=== PATIENT | female | born 1965 | race Caucasian/White ===

== ENCOUNTER 2018-05-06 17:58 | Inpatient (IN) | payer MEDICAID, SELFPAY ==
[2018-05-06 17:59] VITALS: BP 163/109; PULSE 113; RESP 18; TEMP 36.2; O2SAT 98; BMI 24.5
[2018-05-06] MEDS: Ondansetron 4 MG/2 ML Vial IV (19:09)
[2018-05-06] MEDS: 0.9% Normal Saline 1,000 ML 1000 ML IV (19:09)
[2018-05-06] MEDS: LORazepam 1 MG Tablet PO (19:09)
[2018-05-06 19:36] LABS: Absolute Lymphocyte Count 1.33 X10^3/ul (0.83-4.51); Absolute Neutrophil Count 3.8 X10^3/uL (2.0-7.7); Basophil# 0.06 X10^3/uL; Eosinophil# 0.02 X10^3/uL; Eosinophils% 0.3 % (0-5); Hematocrit 45.3 % (37-47); Hemoglobin 15.3 g/dl (12.0-15.0); Lymphocyte # 1.33 X10^3/ul (4.0); Lymphocyte % 22.8 % (19-41); Mean Corp Hgb Conc 33.8 g/gl (32-36); Mean Corpuscular Hgb 35.3 pg (27.0-32.0); Mean Corpuscular Volume 104.6 fL (81-99); Mean Platelet Vol. 10.3 fl (6.2-12.0); Monocyte# 0.61 X10^3/uL; Monocyte% 10.5 % (0-10); Neutrophil # 3.81 X10^3/uL (2.7-7.7); Neutrophil % 65.4 % (47-70); Platelet Count 170 K/mm3 (150-450); RBC Distribution Width CV 13.3 % (11.6-14.6); RBC Distribution Width SD 50.8 fl (35.1-43.9); Red Blood Count 4.33 M/mm3 (4.2-5.4); White Blood Count 5.8 K/mm3 (4.4-11.0)
[2018-05-06 19:39] LABS: Anion Gap 16 (5-15); BUN 12 mg/dL (7-18); BUN/Creat Ratio 15.5 RATIO (10-20); Calcium,Total 10.4 mg/dL (8.5-10.1); Chloride 97 mmol/L (98-107); Creatinine, Serum 0.78 mg/dL (0.55-1.02); EST Glomerular Filtration Rate 83 mL/min (>60); Est Glom Filt Rate - Afr Amer 100 mL/min (>60); Estimated Creatinine Clearance 81.11 ml/min; Glucose 83 mg/dL (74-106); Sodium Level 138 mmol/L (136-145)
[2018-05-06 19:41] LABS: POSITIVE COUNT NO; POSITIVE DIFFERENTIAL NO; POSITIVE MORPHOLOGY NO
--- NOTE | 2018-05-06 20:17 | ED.VISSUMM ---
- ER Visit Summary Date of Service: 05/06/18 Chief Complaint: Alcohol withdrawal History of Present Illness: The patient is a 52 F presenting with alcohol withdrawal requesting detox. Patient states she has been trying to stop using alcohol on her own at home. She states she feels very shaky and is unable to do this on her own. Her last drink was at 10 AM. She drinks 2-3 glasses of vodka per day. She has been drinking heavily since 2012 when she quit smoking. She has no history of withdrawal seizures or DTs. Physical Examination: Vitals are stable. Patient is afebrile. HR 113. Alert no acute distress. HEENT exam is unremarkable. Neck is supple. Lungs are clear and equal bilaterally. Heart is regular and tachycardic Abdomen is soft nontender nondistended. Extremities are unremarkable. Skin is warm and dry. No focal neurologic deficit. Remainder of exam is unremarkable. Emergency Department Course and Treatment: CIWA score 15. Patient was given IV fluids, Zofran, Ativan. CBC, chemistries unremarkable. Alcohol 8.0. Urine tox is pending. Discussed with the hospitalist for admission. Disposition: Admission Impression: Alcohol withdrawal This note was generated with [employer] dictation software. It may contain incorrect words, spelling, and punctuation that were not noted in review of the chart prior to signing ED Disposition - Plan for ED Patient: Chief Complaint: Substance Abuse Referrals: Shant Allison [Primary Care Provider] -
[2018-05-06 20:50] VITALS: BP 149/99; PULSE 90; RESP 18; O2SAT 98
[2018-05-06] MEDS: 0.9% Normal Saline 1,000 ML 999 ML IV (20:55)
[2018-05-06 21:06] LABS: Amphetamine Urine VISTA NEGATIVE (<1000 ng/mL); Barbiturate Urine VISTA NEGATIVE (< 200 ng/mL); Benzodiazepine Urine VISTA NEGATIVE (< 200 ng/mL); Cocaine Urine VISTA NEGATIVE (< 300 ng/mL); Ecstacy Urine VISTA NEGATIVE (< 500 ng/mL); Methadone Urine VISTA NEGATIVE (< 300 ng/mL); PCP Urine VISTA NEGATIVE (< 25 ng/mL); THC Urine VISTA NEGATIVE (< 50 ng/mL); Vista UDS pH Range 6
--- NOTE | 2018-05-06 21:11 | PCM.HP.STD ---
History of Present Illness Date of Admission: 05/06/18 Chief Complaint: alcohol withdrawal The patient is a 52 year old F with past medical history of alcohol dependence and anxiety. She was admitted to the ED on 05/06/2018 with complaint of alcohol withdrawal and wanting to go to detox. She tried to detox at home on her own but started feeling very shaky and having tremors and palpitations. She had a last drink around 10 AM this morning. She usually drinks about 2-3 glasses of vodka every evening and has been drinking heavily since 2012. She denied any fever or chills, cough or chest pain, shortness of breath, abdominal pain, diarrhea vomiting. In the ED, CIWA score was 15. She was tachycardic with heart rate of 113. Alcohol level was 18 urine tox was pending at time of admission. She is been admitted to manage for alcohol withdrawal. 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 Denies: Anorexia, Chills, Fever HEENT: Denies: Head Aches, Sinus Congestion, Sinus Drainage Cardiovascular: Reports: Palpitations. Denies: Chest Pain Respiratory: Denies: Cough, Shortness of Breath, Shortness of breath at rest, Sputum production Gastrointestinal: Denies: Abdominal Pain, Nausea, Vomiting Genitourinary: Denies: Dysuria Musculoskeletal: Denies: Joint Pain, Joint Tenderness Skin: Denies: Rash, Wounds Neurological: Denies: Numbness, Tingling, Focal weakness Psychiatric: Reports: Anxiety Hematologic/ Lymphatic: Denies: Easy Bruising, Easy Bleeding VTE Information - Inpt Only VTE Present on Admission: No VTE Pharm Prophylaxis ordered?: Yes - Physical Exam General: Alert, Oriented x3, Cooperative, - - looks anxious HEENT: Atraumatic, PERRLA, EOMI, Normocephalic Oral: Dry Mucosa Neck: Supple, No JVD, Negative Carotid Bruits Lungs: Clear to auscultation, Normal air movement Cardiovascular: Regular Rhythm, Normal S1, Normal S2, No murmurs, Tachycardic Abdomen: Bowel Sounds Present, Soft, Non Tender Extremities: No clubbing, No cyanosis, No edema, Capillary Refill Less than 3 Seconds Skin: No rashes, No breakdown Musculoskeletal: No Tenderness to Palpation of Joints or Extremities Lymphatic: No Cervical, Supraclavicular, or Inguinal Adenopathy Neurological: Cranial nerves II-XII grossly intact, Neuro grossly intact, Motor Exam 5/5 strength throughout Psych/Mental Status: Anxious, Alert and oriented to time, place, person, mood and affect Vital Signs Temp Pulse Resp BP Pulse Ox 97.1 F L 90 18 149/99 H 98 05/06/18 17:59 05/06/18 20:50 05/06/18 20:50 05/06/18 20:50 05/06/18 20:50 Oxygen Delivery Method Room Air Weight: 156 lb 4.924 oz Body Mass Index (BMI) 24.5 Laboratory Tests Past 24 Hrs 05/06/18 05/06/18 05/06/18 19:10 19:10 19:10 WBC 5.8 RBC 4.33 Hgb 15.3 H Hct 45.3 MCV 104.6 H MCH 35.3 H MCHC 33.8 RDW 13.3 RDW Differential 50.8 H Plt Count 170 MPV 10.3 Immature Gran % (Auto) 0.000 Neut % (Auto) 65.4 Lymph % (Auto) 22.8 [place] % (Auto) 10.5 H Eos % (Auto) 0.3 Baso % (Auto) 1.0 Absolute Neuts (auto) 3.8 Absolute Lymphs (auto) 1.33 Total Counted Not Reportable Sodium 138 Potassium 4.0 Chloride 97 L Carbon Dioxide 25.0 Anion Gap 16 H BUN 12 Creatinine 0.78 Estim Creat Clear Calc 81.11 Est GFR (MDRD) Af Amer 100 Est GFR (MDRD) Non-Af 83 BUN/Creatinine Ratio 15.5 Glucose 83 Calcium 10.4 H Urine Opiates Screen Urine Methadone Screen Ur Barbiturates Screen Ur Phencyclidine Scrn Ur Amphetamines Screen U Methamphetamin-MDMA U Benzodiazepines Scrn Urine Cocaine Screen U Cannabinoids Screen Ur Drug Screen Comment Ethyl Alcohol 8.0 05/06/18 20:45 WBC RBC Hgb Hct MCV MCH MCHC RDW RDW Differential Plt Count MPV Immature Gran % (Auto) Neut % (Auto) Lymph % (Auto) [place] % (Auto) Eos % (Auto) Baso % (Auto) Absolute Neuts (auto) Absolute Lymphs (auto) Total Counted Sodium Potassium Chloride Carbon Dioxide Anion Gap BUN Creatinine Estim Creat Clear Calc Est GFR (MDRD) Af Amer Est GFR (MDRD) Non-Af BUN/Creatinine Ratio Glucose Calcium Urine Opiates Screen NEGATIVE Urine Methadone Screen NEGATIVE Ur Barbiturates Screen NEGATIVE Ur Phencyclidine Scrn NEGATIVE Ur Amphetamines Screen NEGATIVE U Methamphetamin-MDMA NEGATIVE U Benzodiazepines Scrn NEGATIVE Urine Cocaine Screen NEGATIVE U Cannabinoids Screen NEGATIVE Ur Drug Screen Comment Ethyl Alcohol Assessment/Plan 52-year-old female presenting for alcohol withdrawal. 1. Alcohol withdrawal CIWA score on admission was 15 drinks 2-3 glasses of vodka dailyu admit to Med surg with telemetry Check magnesium level. Monitor CIWA score. Start alcohol withdrawal protocol with Ativan per [facility] protocol. Case management consult for discharge planning. PO multivites, folic acid and thiamine daily. 2. Anxiety: not on medication. To be referred to psychiatrist upon discharge. 3. Elevated blood pressure: Blood pressure was in the 160s on admission. Likely due to alcohol withdrawal. Will monitor and start medications as needed. DVT prophylaxis: Heparin Code Visit Inpatient E&M: 21350 Init Hosp L3
[2018-05-06 21:12] VITALS: BMI 23.8
--- NOTE | 2018-05-06 21:16 | HP.PCM_ITS ---
History of Present Illness Date of Admission: 05/06/18 Chief Complaint: alcohol withdrawal The patient is a 52 year old F with past medical history of alcohol dependence and anxiety. She was admitted to the ED on 05/06/2018 with complaint of alcohol withdrawal and wanting to go to detox. She tried to detox at home on her own but started feeling very shaky and having tremors and palpitations. She had a last drink around 10 AM this morning. She usually drinks about 2-3 glasses of vodka every evening and has been drinking heavily since 2012. She denied any fever or chills, cough or chest pain, shortness of breath, abdominal pain, diarrhea vomiting. In the ED, CIWA score was 15. She was tachycardic with heart rate of 113. Alcohol level was 18 urine tox was pending at time of admission. She is been admitted to manage for alcohol withdrawal. 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 Denies: Anorexia, Chills, Fever HEENT: Denies: Head Aches, Sinus Congestion, Sinus Drainage Cardiovascular: Reports: Palpitations. Denies: Chest Pain Respiratory: Denies: Cough, Shortness of Breath, Shortness of breath at rest, Sputum production Gastrointestinal: Denies: Abdominal Pain, Nausea, Vomiting Genitourinary: Denies: Dysuria Musculoskeletal: Denies: Joint Pain, Joint Tenderness Skin: Denies: Rash, Wounds Neurological: Denies: Numbness, Tingling, Focal weakness Psychiatric: Reports: Anxiety Hematologic/ Lymphatic: Denies: Easy Bruising, Easy Bleeding VTE Information - Inpt Only VTE Present on Admission: No VTE Pharm Prophylaxis ordered?: Yes - Physical Exam General: Alert, Oriented x3, Cooperative, - - looks anxious HEENT: Atraumatic, PERRLA, EOMI, Normocephalic Oral: Dry Mucosa Neck: Supple, No JVD, Negative Carotid Bruits Lungs: Clear to auscultation, Normal air movement Cardiovascular: Regular Rhythm, Normal S1, Normal S2, No murmurs, Tachycardic Abdomen: Bowel Sounds Present, Soft, Non Tender Extremities: No clubbing, No cyanosis, No edema, Capillary Refill Less than 3 Seconds Skin: No rashes, No breakdown Musculoskeletal: No Tenderness to Palpation of Joints or Extremities Lymphatic: No Cervical, Supraclavicular, or Inguinal Adenopathy Neurological: Cranial nerves II-XII grossly intact, Neuro grossly intact, Motor Exam 5/5 strength throughout Psych/Mental Status: Anxious, Alert and oriented to time, place, person, mood and affect Vital Signs Temp Pulse Resp BP Pulse Ox 97.1 F L 90 18 149/99 H 98 05/06/18 17:59 05/06/18 20:50 05/06/18 20:50 05/06/18 20:50 05/06/18 20:50 Oxygen Delivery Method Room Air Weight: 156 lb 4.924 oz Body Mass Index (BMI) 24.5 Laboratory Tests Past 24 Hrs 05/06/18 05/06/18 05/06/18 19:10 19:10 19:10 WBC 5.8 RBC 4.33 Hgb 15.3 H Hct 45.3 MCV 104.6 H MCH 35.3 H MCHC 33.8 RDW 13.3 RDW Differential 50.8 H Plt Count 170 MPV 10.3 Immature Gran % (Auto) 0.000 Neut % (Auto) 65.4 Lymph % (Auto) 22.8 [place] % (Auto) 10.5 H Eos % (Auto) 0.3 Baso % (Auto) 1.0 Absolute Neuts (auto) 3.8 Absolute Lymphs (auto) 1.33 Total Counted Not Reportable Sodium 138 Potassium 4.0 Chloride 97 L Carbon Dioxide 25.0 Anion Gap 16 H BUN 12 Creatinine 0.78 Estim Creat Clear Calc 81.11 Est GFR (MDRD) Af Amer 100 Est GFR (MDRD) Non-Af 83 BUN/Creatinine Ratio 15.5 Glucose 83 Calcium 10.4 H Urine Opiates Screen Urine Methadone Screen Ur Barbiturates Screen Ur Phencyclidine Scrn Ur Amphetamines Screen U Methamphetamin-MDMA U Benzodiazepines Scrn Urine Cocaine Screen U Cannabinoids Screen Ur Drug Screen Comment Ethyl Alcohol 8.0 05/06/18 20:45 WBC RBC Hgb Hct MCV MCH MCHC RDW RDW Differential Plt Count MPV Immature Gran % (Auto) Neut % (Auto) Lymph % (Auto) [place] % (Auto) Eos % (Auto) Baso % (Auto) Absolute Neuts (auto) Absolute Lymphs (auto) Total Counted Sodium Potassium Chloride Carbon Dioxide Anion Gap BUN Creatinine Estim Creat Clear Calc Est GFR (MDRD) Af Amer Est GFR (MDRD) Non-Af BUN/Creatinine Ratio Glucose Calcium Urine Opiates Screen NEGATIVE Urine Methadone Screen NEGATIVE Ur Barbiturates Screen NEGATIVE Ur Phencyclidine Scrn NEGATIVE Ur Amphetamines Screen NEGATIVE U Methamphetamin-MDMA NEGATIVE U Benzodiazepines Scrn NEGATIVE Urine Cocaine Screen NEGATIVE U Cannabinoids Screen NEGATIVE Ur Drug Screen Comment Ethyl Alcohol Assessment/Plan 52-year-old female presenting for alcohol withdrawal. 1. Alcohol withdrawal * CIWA score on admission was 15 * drinks 2-3 glasses of vodka dailyu * admit to Med surg with telemetry * Check magnesium level. * Monitor CIWA score. Start alcohol withdrawal protocol with Ativan per [facility] protocol. * Case management consult for discharge planning. * PO multivites, folic acid and thiamine daily. * 2. Anxiety: not on medication. To be referred to psychiatrist upon discharge. 3. Elevated blood pressure: Blood pressure was in the 160s on admission. Likely due to alcohol withdrawal. Will monitor and start medications as needed. DVT prophylaxis: Heparin Code Visit Inpatient E&M: 52418 Init Hosp L3
[2018-05-06 21:38] VITALS: BP 134/87; PULSE 105; RESP 20; TEMP 37; O2SAT 98
[2018-05-06 21:41] VITALS: BMI 23.9
[2018-05-06 22:00] VITALS: PULSE 111
[2018-05-06] MEDS: 0.9% Normal Saline 1,000 ML 125 ML IV (22:22)
[2018-05-06 22:33] LABS: AST(SGOT) 136 U/L (15-37); Alanine Aminotransfer ALT/SGPT 180 U/L (13-56); Alkaline Phosphatase 102 U/L (45-117); Bilirubin, Direct 0.37 mg/dL (0.00-0.30); Globulin 4.1 g/dL (2.2-4.2); Magnesium 2.1 mg/dL (1.6-2.6); Protein, Total 9.1 g/dL (6.4-8.2)
[2018-05-06] MEDS: Heparin Injection (Vial) 5,000 UNIT/ML VIAL 5000 UNIT SC (22:37)
[2018-05-06] MEDS: Famotidine 20 MG Tablet PO (22:37)
[2018-05-06] MEDS: LORazepam 1 MG Tablet 2 MG PO (22:38)
[2018-05-07] VITALS (14 sets, daily range): BP systolic 128–143; BP diastolic 84–98; PULSE 69–88; RESP 16; TEMP 36.4–37; O2SAT 96–99
[2018-05-07] MEDS: LORazepam 1 MG Tablet 2 MG PO ×6 (05:35→22:10)
[2018-05-07] MEDS: 0.9% Normal Saline 1,000 ML 125 ML IV (05:35)
[2018-05-07] MEDS: Heparin Injection (Vial) 5,000 UNIT/ML VIAL 5000 UNIT SC ×3 (05:35→21:48)
[2018-05-07 05:53] LABS: Absolute Lymphocyte Count 1.81 X10^3/ul (0.83-4.51); Basophil# 0.07 X10^3/uL; Basophil% 1.2 % (0-1); Eosinophil# 0.08 X10^3/uL; Eosinophils% 1.4 % (0-5); Hematocrit 40.8 % (37-47); Hemoglobin 13.5 g/dl (12.0-15.0); Lymphocyte # 1.81 X10^3/ul (4.0); Lymphocyte % 31.3 % (19-41); Mean Corp Hgb Conc 33.1 g/gl (32-36); Mean Corpuscular Hgb 35.7 pg (27.0-32.0); Mean Corpuscular Volume 107.9 fL (81-99); Mean Platelet Vol. 10.2 fl (6.2-12.0); Monocyte% 13.8 % (0-10); Neutrophil # 3.02 X10^3/uL (2.7-7.7); Neutrophil % 52.1 % (47-70); Platelet Count 139 K/mm3 (150-450); Red Blood Count 3.78 M/mm3 (4.2-5.4); White Blood Count 5.8 K/mm3 (4.4-11.0)
[2018-05-07 06:17] LABS: Anion Gap 8 (5-15); BUN 16 mg/dL (7-18); BUN/Creat Ratio 19.1 RATIO (10-20); Calcium,Total 8.7 mg/dL (8.5-10.1); Chloride 107 mmol/L (98-107); Creatinine, Serum 0.84 mg/dL (0.55-1.02); EST Glomerular Filtration Rate 75 mL/min (>60); Est Glom Filt Rate - Afr Amer 91 mL/min (>60); Estimated Creatinine Clearance 75.32 ml/min; Glucose 87 mg/dL (74-106); Potassium 4.4 mmol/L (3.5-5.1); Sodium Level 144 mmol/L (136-145)
[2018-05-07 06:21] LABS: POSITIVE COUNT NO; POSITIVE DIFFERENTIAL NO; POSITIVE MORPHOLOGY NO
[2018-05-07] MEDS: Multivitamins,Ther W-Minerals Tablet 1 TABLET PO (08:05)
[2018-05-07] MEDS: Famotidine 20 MG Tablet PO ×2 (08:05→21:48)
[2018-05-07] MEDS: Folic Acid 1 MG Tablet PO (08:05)
[2018-05-07] MEDS: Thiamine Hydrochloride 100 MG Tablet PO ×2 (08:05→17:23)
--- NOTE | 2018-05-07 08:08 | PCM.PROGNOTE ---
Subjective: Patient is a 52-year-old female with no significant past medical history other than alcoholism who tried to detox herself at home. She started to experience tremors and palpitations and presented to the emergency department at [facility] on 05/06/2018 requesting inpatient admission for medical stabilization for acute alcohol withdrawal. She stated she drinks 2-3 glasses of vodka every evening and has been drinking heavily since 2012. See was score in the emergency department was 15. Heart rate was 113. She was admitted to the hospital and the [facility] protocol for acute alcohol withdrawal was initiated. She was started on an Ativan taper. Folic acid and thiamine supplementation were ordered. CBC this morning shows thrombocytopenia with platelet count of 139,000. White blood cell count and hemoglobin are within normal limits. LFTs at admission showed an elevated bilirubin at 1.4, AST of 136 and ALT of 180 with a normal alkaline phosphatase. Urine drug screen was negative and the ethyl alcohol level was 8.0. She has tried in the past to stop drinking on her own and has not been successful. She has never been in a rehab program or AA. She is seeing a counselor at [facility] for anxiety. 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 She tells me she never drinks at work, she only drinks at home. She drinks usually 6 oz of 40% Vodka after going home and she does this to help her sleep. She has been in the same relationship of 23 years and he significant other is not a drinker. She denies any drug use. Does not take Benzo's, has never tried Buspar. No N/V/D/Abd pain. Having some mild tremors. No hallucinations. Mild HTN today Objective: PHYSICAL EXAM: GENERAL: alert, oriented X 3, Cooperative, tremulous and looks as though she does not feel well, was able to eat most of her lunch ORAL: moist mucosa, no mucosal lesions NECK: No JVD, supple, trachea midline LUNGS: CTA, symmetric chest expansion HEART: RRR, Normal S1 and S2, no rub, no gallop ABDOMEN: soft, NT, ND, BS present, no guarding with palpation EXTREMITIES: no edema, no cyanosis, no calf tenderness SKIN: No rashes, no breakdown NEUROLOGIC: no focal neurologic deficits, mild tremors. No asterixis PSYCH: appropriate, normal affect, pleasant - Physical Exam Vital Signs Temp Pulse Resp BP Pulse Ox 98.6 F 88 16 128/84 H 97 05/07/18 08:00 05/07/18 08:00 05/07/18 08:00 05/07/18 08:00 05/07/18 08:00 Oxygen Delivery Method Room Air Weight: 152 lb 8.958 oz Body Mass Index (BMI) 23.8 Intake and Output for Last 24 Hours 05/05/18 05/06/18 05/07/18 23:59 23:59 23:59 Intake Total 1890 / 1890 Output Total 1100 / 1100 Balance 790 / 790 Laboratory Tests Past 24 Hrs 05/06/18 05/06/18 05/06/18 19:10 19:10 19:10 WBC 5.8 RBC 4.33 Hgb 15.3 H Hct 45.3 MCV 104.6 H MCH 35.3 H MCHC 33.8 RDW 13.3 RDW Differential 50.8 H Plt Count 170 MPV 10.3 Immature Gran % (Auto) 0.000 Neut % (Auto) 65.4 Lymph % (Auto) 22.8 [place] % (Auto) 10.5 H Eos % (Auto) 0.3 Baso % (Auto) 1.0 Absolute Neuts (auto) 3.8 Absolute Lymphs (auto) 1.33 Total Counted Not Reportable Sodium 138 Potassium 4.0 Chloride 97 L Carbon Dioxide 25.0 Anion Gap 16 H BUN 12 Creatinine 0.78 Estim Creat Clear Calc 81.11 Est GFR (MDRD) Af Amer 100 Est GFR (MDRD) Non-Af 83 BUN/Creatinine Ratio 15.5 Glucose 83 Calcium 10.4 H Magnesium Total Bilirubin Direct Bilirubin AST ALT Alkaline Phosphatase Total Protein Albumin Globulin Urine Opiates Screen Urine Methadone Screen Ur Barbiturates Screen Ur Phencyclidine Scrn Ur Amphetamines Screen U Methamphetamin-MDMA U Benzodiazepines Scrn Urine Cocaine Screen U Cannabinoids Screen Ur Drug Screen Comment Ethyl Alcohol 8.0 05/06/18 05/06/18 05/07/18 19:10 20:45 05:27 WBC 5.8 RBC 3.78 L Hgb 13.5 Hct 40.8 MCV 107.9 H MCH 35.7 H MCHC 33.1 RDW 13.0 RDW Differential 51.0 H Plt Count 139 L MPV 10.2 Immature Gran % (Auto) 0.200 Neut % (Auto) 52.1 Lymph % (Auto) 31.3 [place] % (Auto) 13.8 H Eos % (Auto) 1.4 Baso % (Auto) 1.2 H Absolute Neuts (auto) 3.0 Absolute Lymphs (auto) 1.81 Total Counted Not Reportable Sodium Potassium Chloride Carbon Dioxide Anion Gap BUN Creatinine Estim Creat Clear Calc Est GFR (MDRD) Af Amer Est GFR (MDRD) Non-Af BUN/Creatinine Ratio Glucose Calcium Magnesium 2.1 Total Bilirubin 1.40 H Direct Bilirubin 0.37 H AST 136 H ALT 180 H Alkaline Phosphatase 102 Total Protein 9.1 H Albumin 5.0 Globulin 4.1 Urine Opiates Screen NEGATIVE Urine Methadone Screen NEGATIVE Ur Barbiturates Screen NEGATIVE Ur Phencyclidine Scrn NEGATIVE Ur Amphetamines Screen NEGATIVE U Methamphetamin-MDMA NEGATIVE U Benzodiazepines Scrn NEGATIVE Urine Cocaine Screen NEGATIVE U Cannabinoids Screen NEGATIVE Ur Drug Screen Comment Ethyl Alcohol 05/07/18 05:27 WBC RBC Hgb Hct MCV MCH MCHC RDW RDW Differential Plt Count MPV Immature Gran % (Auto) Neut % (Auto) Lymph % (Auto) [place] % (Auto) Eos % (Auto) Baso % (Auto) Absolute Neuts (auto) Absolute Lymphs (auto) Total Counted Sodium 144 Potassium 4.4 Chloride 107 Carbon Dioxide 29.0 Anion Gap 8 BUN 16 Creatinine 0.84 Estim Creat Clear Calc 75.32 Est GFR (MDRD) Af Amer 91 Est GFR (MDRD) Non-Af 75 BUN/Creatinine Ratio 19.1 Glucose 87 Calcium 8.7 Magnesium Total Bilirubin Direct Bilirubin AST ALT Alkaline Phosphatase Total Protein Albumin Globulin Urine Opiates Screen Urine Methadone Screen Ur Barbiturates Screen Ur Phencyclidine Scrn Ur Amphetamines Screen U Methamphetamin-MDMA U Benzodiazepines Scrn Urine Cocaine Screen U Cannabinoids Screen Ur Drug Screen Comment Ethyl Alcohol Medical Necessity - Tobacco Use Smoking Status: Former smoker Assessment/Plan Impressions 1. acute ETOH withdrawal 2. ETOH dependence 3. Chronic anxiety - she is currently seeing a counselor at [facility] 4. chronic insomnia Continue lorazepam taper Start trazodone 100 mg p.o. nightly Consider BuSpar in the future for anxiety control Plans on outpatient alcohol rehab Will continue counseling at [facility] seed Check a TSH Code Visit Inpatient E&M: 94797 Subs Hosp L2
--- NOTE | 2018-05-07 08:11 | PN_ITS ---
Subjective: Patient is a 52-year-old female with no significant past medical history other than alcoholism who tried to detox herself at home. She started to experience tremors and palpitations and presented to the emergency department at [facility] on 05/06/2018 requesting inpatient admission for medical stabilization for acute alcohol withdrawal. She stated she drinks 2-3 glasses of vodka every evening and has been drinking heavily since 2012. See was score in the emergency department was 15. Heart rate was 113. She was admitted to the hospital and the [facility] protocol for acute alcohol withdrawal was initiated. She was started on an Ativan taper. Folic acid and thiamine supplementation were ordered. CBC this morning shows thrombocytopenia with platelet count of 139,000. White blood cell count and hemoglobin are within normal limits. LFTs at admission showed an elevated bilirubin at 1.4, AST of 136 and ALT of 180 with a normal alkaline phosphatase. Urine drug screen was negative and the ethyl alcohol level was 8.0. She has tried in the past to stop drinking on her own and has not been successful. She has never been in a rehab program or AA. She is seeing a counselor at [facility] for anxiety. 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 She tells me she never drinks at work, she only drinks at home. She drinks usually 6 oz of 40% Vodka after going home and she does this to help her sleep. She has been in the same relationship of 23 years and he significant other is not a drinker. She denies any drug use. Does not take Benzo's, has never tried Buspar. No N/V/D/Abd pain. Having some mild tremors. No hallucinations. Mild HTN today Objective: PHYSICAL EXAM: GENERAL: alert, oriented X 3, Cooperative, tremulous and looks as though she does not feel well, was able to eat most of her lunch ORAL: moist mucosa, no mucosal lesions NECK: No JVD, supple, trachea midline LUNGS: CTA, symmetric chest expansion HEART: RRR, Normal S1 and S2, no rub, no gallop ABDOMEN: soft, NT, ND, BS present, no guarding with palpation EXTREMITIES: no edema, no cyanosis, no calf tenderness SKIN: No rashes, no breakdown NEUROLOGIC: no focal neurologic deficits, mild tremors. No asterixis PSYCH: appropriate, normal affect, pleasant - Physical Exam Vital Signs Temp Pulse Resp BP Pulse Ox 98.6 F 88 16 128/84 H 97 05/07/18 08:00 05/07/18 08:00 05/07/18 08:00 05/07/18 08:00 05/07/18 08:00 Oxygen Delivery Method Room Air Weight: 152 lb 8.958 oz Body Mass Index (BMI) 23.8 Intake and Output for Last 24 Hours 05/05/18 05/06/18 05/07/18 23:59 23:59 23:59 Intake Total 1890 / 1890 Output Total 1100 / 1100 Balance 790 / 790 Laboratory Tests Past 24 Hrs 05/06/18 05/06/18 05/06/18 19:10 19:10 19:10 WBC 5.8 RBC 4.33 Hgb 15.3 H Hct 45.3 MCV 104.6 H MCH 35.3 H MCHC 33.8 RDW 13.3 RDW Differential 50.8 H Plt Count 170 MPV 10.3 Immature Gran % (Auto) 0.000 Neut % (Auto) 65.4 Lymph % (Auto) 22.8 Bledsoe % (Auto) 10.5 H Eos % (Auto) 0.3 Baso % (Auto) 1.0 Absolute Neuts (auto) 3.8 Absolute Lymphs (auto) 1.33 Total Counted Not Reportable Sodium 138 Potassium 4.0 Chloride 97 L Carbon Dioxide 25.0 Anion Gap 16 H BUN 12 Creatinine 0.78 Estim Creat Clear Calc 81.11 Est GFR (MDRD) Af Amer 100 Est GFR (MDRD) Non-Af 83 BUN/Creatinine Ratio 15.5 Glucose 83 Calcium 10.4 H Magnesium Total Bilirubin Direct Bilirubin AST ALT Alkaline Phosphatase Total Protein Albumin Globulin Urine Opiates Screen Urine Methadone Screen Ur Barbiturates Screen Ur Phencyclidine Scrn Ur Amphetamines Screen U Methamphetamin-MDMA U Benzodiazepines Scrn Urine Cocaine Screen U Cannabinoids Screen Ur Drug Screen Comment Ethyl Alcohol 8.0 05/06/18 05/06/18 05/07/18 19:10 20:45 05:27 WBC 5.8 RBC 3.78 L Hgb 13.5 Hct 40.8 MCV 107.9 H MCH 35.7 H MCHC 33.1 RDW 13.0 RDW Differential 51.0 H Plt Count 139 L MPV 10.2 Immature Gran % (Auto) 0.200 Neut % (Auto) 52.1 Lymph % (Auto) 31.3 Bledsoe % (Auto) 13.8 H Eos % (Auto) 1.4 Baso % (Auto) 1.2 H Absolute Neuts (auto) 3.0 Absolute Lymphs (auto) 1.81 Total Counted Not Reportable Sodium Potassium Chloride Carbon Dioxide Anion Gap BUN Creatinine Estim Creat Clear Calc Est GFR (MDRD) Af Amer Est GFR (MDRD) Non-Af BUN/Creatinine Ratio Glucose Calcium Magnesium 2.1 Total Bilirubin 1.40 H Direct Bilirubin 0.37 H AST 136 H ALT 180 H Alkaline Phosphatase 102 Total Protein 9.1 H Albumin 5.0 Globulin 4.1 Urine Opiates Screen NEGATIVE Urine Methadone Screen NEGATIVE Ur Barbiturates Screen NEGATIVE Ur Phencyclidine Scrn NEGATIVE Ur Amphetamines Screen NEGATIVE U Methamphetamin-MDMA NEGATIVE U Benzodiazepines Scrn NEGATIVE Urine Cocaine Screen NEGATIVE U Cannabinoids Screen NEGATIVE Ur Drug Screen Comment Ethyl Alcohol 05/07/18 05:27 WBC RBC Hgb Hct MCV MCH MCHC RDW RDW Differential Plt Count MPV Immature Gran % (Auto) Neut % (Auto) Lymph % (Auto) Bledsoe % (Auto) Eos % (Auto) Baso % (Auto) Absolute Neuts (auto) Absolute Lymphs (auto) Total Counted Sodium 144 Potassium 4.4 Chloride 107 Carbon Dioxide 29.0 Anion Gap 8 BUN 16 Creatinine 0.84 Estim Creat Clear Calc 75.32 Est GFR (MDRD) Af Amer 91 Est GFR (MDRD) Non-Af 75 BUN/Creatinine Ratio 19.1 Glucose 87 Calcium 8.7 Magnesium Total Bilirubin Direct Bilirubin AST ALT Alkaline Phosphatase Total Protein Albumin Globulin Urine Opiates Screen Urine Methadone Screen Ur Barbiturates Screen Ur Phencyclidine Scrn Ur Amphetamines Screen U Methamphetamin-MDMA U Benzodiazepines Scrn Urine Cocaine Screen U Cannabinoids Screen Ur Drug Screen Comment Ethyl Alcohol Medical Necessity - Tobacco Use Smoking Status: Former smoker Assessment/Plan Impressions 1. acute ETOH withdrawal 2. ETOH dependence 3. Chronic anxiety - she is currently seeing a counselor at [facility] 4. chronic insomnia Continue lorazepam taper Start trazodone 100 mg p.o. nightly Consider BuSpar in the future for anxiety control Plans on outpatient alcohol rehab Will continue counseling at [facility] Check a TSH Code Visit Inpatient E&M: 29200 Subs Hosp L2
[2018-05-07 13:40] LABS: Thyroid Stim Hormone (TSH) 3.52 uIU/mL (0.358-3.74)
[2018-05-08 05:41] VITALS: BP 121/80; PULSE 71; RESP 18; TEMP 36.7; O2SAT 96
[2018-05-08] MEDS: Heparin Injection (Vial) 5,000 UNIT/ML VIAL 5000 UNIT SC ×3 (05:44→22:57)
[2018-05-08 07:06] VITALS: PULSE 79
--- NOTE | 2018-05-08 08:18 | PN_ITS ---
Subjective: All events of the past 24 hours of been reviewed. She had some mild hypertension yesterday afternoon but her current blood pressure is 121/80 and her heart rate is in the 70s and low 80s. Oral intake on 05/07/2018 was 1050 cc. Tells me that she slept better last night She wanted to know all the medications she is on and I reviewed the med list w ith her and explained why we are using the medications we chos No nausea today. Wants to take a shower Objective: PHYSICAL EXAM: GENERAL: alert, oriented X 3, Cooperative, less tremulous, looks better today and is more interactive ORAL: moist mucosa, no mucosal lesions NECK: No JVD, supple, trachea midline LUNGS: CTA, symmetric chest expansion HEART: RRR, Normal S1 and S2, no rub, no gallop ABDOMEN: soft, NT, ND, BS present, no guarding with palpation EXTREMITIES: no edema, no cyanosis, no calf tenderness SKIN: No rashes, no breakdown NEUROLOGIC: no focal neurologic deficits, mild tremors. No asterixis PSYCH: appropriate, normal affect, pleasant - Physical Exam Vital Signs Temp Pulse Resp BP Pulse Ox 98.1 F 79 18 121/80 H 96 05/08/18 05:41 05/08/18 07:06 05/08/18 05:41 05/08/18 05:41 05/08/18 05:41 Oxygen Delivery Method Room Air Weight: 152 lb 8.958 oz Body Mass Index (BMI) 23.8 Intake and Output for Last 24 Hours 05/06/18 05/07/18 05/08/18 23:59 23:59 23:59 Intake Total 3297 / 3297 700 / 700 Output Total 1100 / 1100 Balance 2197 / 2197 700 / 700 Laboratory Tests Past 24 Hrs 05/07/18 05:27 TSH 3.52 Medical Necessity - Tobacco Use Smoking Status: Former smoker Assessment/Plan Impressions 1. acute ETOH withdrawal 2. ETOH dependence 3. Chronic anxiety - she is currently seeing a counselor at [facility] 4. chronic insomnia Continue lorazepam taper Continue trazodone 100 mg p.o. nightly - will give a prescription at [place] Consider BuSpar in the future for anxiety control if getting a good night's sleep does not improve her anxiety Plans on outpatient alcohol rehab Will continue counseling at [facility] Check a TSH - it is normal
[2018-05-08] MEDS: Ondansetron ODT 4 MG Tablet PO (09:52)
[2018-05-08] MEDS: Folic Acid 1 MG Tablet PO (09:53)
[2018-05-08] MEDS: Multivitamins,Ther W-Minerals Tablet 1 TABLET PO (09:54)
[2018-05-08] MEDS: Famotidine 20 MG Tablet PO ×2 (09:54→22:58)
[2018-05-08] MEDS: Thiamine Hydrochloride 100 MG Tablet PO ×2 (09:54→18:45)
[2018-05-08 09:56] VITALS: BP 133/89; PULSE 80; RESP 16; TEMP 36.3; O2SAT 96
[2018-05-08] MEDS: LORazepam 1 MG Tablet 2 MG PO ×3 (10:00→22:56)
--- NOTE | 2018-05-08 10:23 | CASEMGMT ---
Social Work SW spoke with pt in room. Pt stating that she had a court appointment this morning at [address] [facility]. Pt states that her document review attorney is aware that she is currently hospitalized and pt is requesting court be notified of pt current admission to hospital. Letter faxed to [facility] informing of pt admission to [facility] from 05/06/18 to present. Pt given copy of faxed letter. No other SW concerns at this time. ALEX Kirby
[2018-05-08 16:00] VITALS: BP 130/88; PULSE 82; RESP 18; TEMP 36.9; O2SAT 97
[2018-05-08 23:02] VITALS: BP 123/93; PULSE 83; RESP 16; TEMP 36.6; O2SAT 96
[2018-05-09] MEDS: Heparin Injection (Vial) 5,000 UNIT/ML VIAL 5000 UNIT SC (05:33)
[2018-05-09 05:36] VITALS: BP 140/93; PULSE 69; RESP 16; TEMP 36.8; O2SAT 97
[2018-05-09 08:00] VITALS: BP 130/83; PULSE 77; RESP 18; TEMP 36.8; O2SAT 98
[2018-05-09] MEDS: Thiamine Hydrochloride 100 MG Tablet PO (08:13)
[2018-05-09] MEDS: Folic Acid 1 MG Tablet PO (08:13)
[2018-05-09] MEDS: Famotidine 20 MG Tablet PO (08:13)
[2018-05-09] MEDS: Multivitamins,Ther W-Minerals Tablet 1 TABLET PO (08:13)
[2018-05-09] MEDS: LORazepam 1 MG Tablet 2 MG PO (08:30)
--- NOTE | 2018-05-09 08:47 | DCINST_ITS ---
You will use the following diet at home:: No restrictions Your food should be the consistency of: Regular Discharge Activity: May Not Drive - while under the influence of alcohol or any other substance. Allergies/Adverse Reactions: Allergies No Known Allergies Allergy (Verified 05/06/18 17:59) Medications to take at Discharge DiphenhydrAMINE [Benadryl] 25 mg PO QHS PRN PRN 05/06/18 traZODone [Desyrel] 100 mg PO QHS #30 tablet 05/08/18 Multivitamins,Ther W-Minerals [Multivitamin With Minerals] 1 tablet PO DAILYCM tablet 05/09/18 The following prescriptions were given: traZODone [Desyrel] 100 mg PO QHS #30 tablet Primary Care Physician: Shant Allison [Primary Care Provider] - Within 2 Weeks Test Results: Test results from this visit will be discussed in further detail at your follow- up appointment, if applicable. Please Follow Up With: [facility] When: as soon as possible. Proposed Discharge Date: 05/09/18
--- NOTE | 2018-05-09 08:47 | PCM.DC.SUM ---
Discharge Date and Diagnosis - Problem List Patient Problems: Active and Suspected Problems Alcohol withdrawal (Acute) Date of Admission: 05/06/18 Date of Discharge: 05/09/18 - Primary Discharge Diagnosis Active and Suspected Problems Alcohol withdrawal (Acute) Hospital Course and Treatment Operations: None Procedures: None Summary of Care Provided: The patient is a 52 year old F presents with acute alcohol withdrawal. Patient presented to the hospital to see her daughter who is Having a psychological issue where she went to a [employer] [place] and called 911. Daughter demanded that the patient drive to the hospital to see her. The patient, knowing she was intoxicated, drove to the hospital and when she arrived was given a breathalyzer by police and then had a high alcohol level. Patient was told that she was not being arrested but told that she was having operating a vehicle while intoxicated even though the patient was not actively driving at that time. Patient made decision that it was time for her to quit alcohol. Patient never quit before. Patient states that she drinks because of her daughter who has psychological issues that have been diagnosed as PTSD. This is per the patient's description, the above. Patient was started on thiamine and folate and was on Ativan as needed. Patient overall feels better. Patient was ambulated initially was unsteady but did not improve. Patient unable to complete a heel to toe the patient states that is baseline for her given her history of M?ni?re's disease. 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 And that the discrete circumstance that she described extremely not what I would consider to be typical but I am not sure what the standard is. Advised her to use discussion in regards to who she relates information about this to. Though I did strongly condemn her driving drunk even though she stated that she only lived short distance away. I told her that is no excuse for that and that she could easily call a taxi cab or use [employer] for transportation. [] Patient Problems: Active and Suspected Problems Alcohol withdrawal (Acute) - Physical Exam General: Alert, Cooperative, No apparent distress HEENT: Atraumatic, Normocephalic, - - left lateral nystagmus. Neck: No Nodes, Thyroid Normal Size and Texture Lungs: Clear to auscultation, Normal air movement, No rhonchi, No wheeze Cardiovascular: Regular rate, Regular Rhythm, Normal S1, Normal S2 Abdomen: Bowel Sounds Present, Soft, Non Tender, Non-Distended, No Hepato-splenomegaly Extremities: No edema, No Calf Tenderness Skin: No rashes, No breakdown Psych/Mental Status: Normal Affect, Appropriate Vital Signs Temp Pulse Resp BP Pulse Ox 36.8 C 77 18 130/83 H 98 05/09/18 08:00 05/09/18 08:00 05/09/18 08:00 05/09/18 08:00 05/09/18 08:00 Oxygen Delivery Method Room Air Weight: 69.2 kg Body Mass Index (BMI) 23.8 Intake and Output for Last 24 Hours 05/07/18 05/08/18 05/09/18 23:59 23:59 23:59 Intake Total 3297 / 3297 1550 / 1550 520 / 520 Output Total 1100 / 1100 Balance 2197 / 2197 1550 / 1550 520 / 520 Discharge Diet: No Restrictions Discharge Activity: May Not Drive - while under the influence of alcohol or any other substance. Call your doctor if you observe: Fever of 101 or Higher, Coldness, Increased Pain Home Medications: Medications to take at Discharge DiphenhydrAMINE [Benadryl] 25 mg PO QHS PRN PRN 05/06/18 traZODone [Desyrel] 100 mg PO QHS #30 tablet 05/08/18 Multivitamins,Ther W-Minerals [Multivitamin With Minerals] 1 tablet PO DAILYCM tablet 05/09/18 Following Prescrptions Were Given to Patient: traZODone [Desyrel] 100 mg PO QHS #30 tablet Primary Care Physician: Shant Allison [Primary Care Provider] - Within 2 Weeks Please Follow Up With: Araseli Gore When: as soon as possible. Disposition: Home Minutes spent on discharge:: 40 Patient Condition:: Good Medical Necessity - Tobacco Use Smoking Status: Former smoker Meaningful Use Info Meaningful Use Diagnoses (Choose all that apply): None applicable Code Visit Inpatient E&M: 12425 Disch Hosp
--- NOTE | 2018-05-09 08:51 | DS.PCM_ITS ---
Discharge Date and Diagnosis - Problem List Patient Problems: Active and Suspected Problems Alcohol withdrawal (Acute) Date of Admission: 05/06/18 Date of Discharge: 05/09/18 - Primary Discharge Diagnosis Active and Suspected Problems Alcohol withdrawal (Acute) Hospital Course and Treatment Operations: None Procedures: None Summary of Care Provided: The patient is a 52 year old F presents with acute alcohol withdrawal. Patient presented to the hospital to see her daughter who is Having a psychological issue where she went to a [employer] and called 911. Daughter demanded that the patient drive to the hospital to see her. The patient, knowing she was intoxicated, drove to the hospital and when she arrived was given a breathalyzer by police and then had a high alcohol level. Patient was told that she was not being arrested but told that she was having operating a vehicle while intoxicated even though the patient was not actively driving at that time. Patient made decision that it was time for her to quit alcohol. Patient never quit before. Patient states that she drinks because of her daughter who has psychological issues that have been diagnosed as PTSD. This is per the patient's description, the above. Patient was started on thiamine and folate and was on Ativan as needed. Patient overall feels better. Patient was ambulated initially was unsteady but did not improve. Patient unable to complete a heel to toe the patient states that is baseline for her given her history of M?ni?re's disease. 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 And that the discrete circumstance that she described extremely not what I would consider to be typical but I am not sure what the standard is. Advised her to use discussion in regards to who she relates information about this to. Though I did strongly condemn her driving drunk even though she stated that she only lived short distance away. I told her that is no excuse for that and that she could easily call a taxi cab or use [employer] for transportation. [] Patient Problems: Active and Suspected Problems Alcohol withdrawal (Acute) - Physical Exam General: Alert, Cooperative, No apparent distress HEENT: Atraumatic, Normocephalic, - - left lateral nystagmus. Neck: No Nodes, Thyroid Normal Size and Texture Lungs: Clear to auscultation, Normal air movement, No rhonchi, No wheeze Cardiovascular: Regular rate, Regular Rhythm, Normal S1, Normal S2 Abdomen: Bowel Sounds Present, Soft, Non Tender, Non-Distended, No Hepato- splenomegaly Extremities: No edema, No Calf Tenderness Skin: No rashes, No breakdown Psych/Mental Status: Normal Affect, Appropriate Vital Signs Temp Pulse Resp BP Pulse Ox 36.8 C 77 18 130/83 H 98 05/09/18 08:00 05/09/18 08:00 05/09/18 08:00 05/09/18 08:00 05/09/18 08:00 Oxygen Delivery Method Room Air Weight: 69.2 kg Body Mass Index (BMI) 23.8 Intake and Output for Last 24 Hours 05/07/18 05/08/18 05/09/18 23:59 23:59 23:59 Intake Total 3297 / 3297 1550 / 1550 520 / 520 Output Total 1100 / 1100 Balance 2197 / 2197 1550 / 1550 520 / 520 Discharge Diet: No Restrictions Discharge Activity: May Not Drive - while under the influence of alcohol or any other substance. Call your doctor if you observe: Fever of 101 or Higher, Coldness, Increased Pain Home Medications: Medications to take at Discharge DiphenhydrAMINE [Benadryl] 25 mg PO QHS PRN PRN 05/06/18 traZODone [Desyrel] 100 mg PO QHS #30 tablet 05/08/18 Multivitamins,Ther W-Minerals [Multivitamin With Minerals] 1 tablet PO DAILYCM tablet 05/09/18 Following Prescrptions Were Given to Patient: traZODone [Desyrel] 100 mg PO QHS #30 tablet Primary Care Physician: Shant Allison [Primary Care Provider] - Within 2 Weeks Please Follow Up With: Araseli Gore When: as soon as possible. Disposition: Home Minutes spent on discharge:: 40 Patient Condition:: Good Medical Necessity - Tobacco Use Smoking Status: Former smoker Meaningful Use Info Meaningful Use Diagnoses (Choose all that apply): None applicable Code Visit Inpatient E&M: 33148 Disch Hosp
== END 2018-05-09 13:46 | disposition home or self-care (01) | DRG 775 ==
LOC: ED 19:04 → MS2 20:58
PROVIDERS: Internal Medicine; Admitting Provider Student in an Organized Health Care Education/Training Program; Emergency Provider Emergency Medicine; Family Provider Family Medicine; Referring Provider Student in an Organized Health Care Education/Training Program
DX: F10.239 Alcohol dependence with withdrawal, unspecified (principal); Z87.891 Personal history of nicotine dependence; F41.9 Anxiety disorder, unspecified; F51.04 Psychophysiologic insomnia; Y90.0 Blood alcohol level of less than 20 mg/100 ml; Z23 Encounter for immunization
CPT/HCPCS: 36415; 80048; 80076; 80307; 80320; 83735; 84443; 85025; 97802; 99283; J7030; 90686; A4216; G0480; J2405

== ENCOUNTER 2019-01-13 19:56 | Emergency (ER) | payer MEDICAID, SELFPAY ==
[2019-01-13 19:56] VITALS: BP 121/80; PULSE 84; RESP 16; TEMP 36.3; O2SAT 98; BMI 21.9
--- NOTE | 2019-01-13 20:11 | ED.DCSUM_ITS ---
- ER Visit Summary Date of Service: 01/13/19 Chief Complaint: Lutz to feet History of Present Illness: The patient is a 53 F who has lutz to the bilateral feet. About an hour and a half ago she was making [place]ian fries in the hot oil spilled on her feet. She soaked them in cold water. She is unknown as to when her last tetanus shot was. She complains of pain in these areas. Denies any bleeding or drainage. Physical Examination: Vital signs reviewed. Bilateral foot exam reveals superficial lutz with blisters to the bilateral feet and ankle areas. No erythema or drainage. No open blisters Test Results: None performed Emergency Department Course and Treatment: The patient's tetanus will be updated. The feet and ankles will be wrapped. I will give her bacitracin for home. She will continue ice and NSAIDs. Treatment Plan: [] Disposition: Discharge Impression: Thermal lutz, bilateral feet and ankles This note was generated with [employer] dictation software. It may contain incorrect words, spelling, and punctuation that were not noted in review of the chart prior to signing ED Disposition - Plan for ED Patient: Referrals: Shant Allison [Primary Care Provider] -
--- NOTE | 2019-01-13 20:12 | DCINST.ED_ITS ---
ED Disposition - Plan for ED Patient: Disposition: Home or Assisted Living Instructions: BURN, Thermal, (1'2'3') w/ Dressing Prescriptions: Bacitracin Zinc [Antibiotic] 28.4 gm TP BID #1 oint...g. Transmission Status: Pending to [facility] Referrals: Shant Allison [Primary Care Provider] - Additional Instructions: Your prescription was transmitted to [facility]
[2019-01-13] MEDS: Diphth,Pertuss(Acell),Tet Vac 0.5 ML Vial IM (20:21)
[2019-01-13 20:48] VITALS: RESP 16
--- NOTE | 2019-01-13 20:50 | ED.RN ---
REVIEWED D/C INSTRUCTIONS, FOLLOW UP CARE, PRESCRIPTION, AND S/S THAT WOULD WARRANT A RETURN TO THE ED WITH PT. PT VERBALIZED AN UNDERSTANDING AND DENIES FURTHER QUESTIONS FOR THIS RN. PT SKIN P/W/D, RESP EVEN AND UNLABORED, PT A&O X 3, NO DISTRESS NOTED. PT AMBULATED OUT OF ED, GAIT STEADY.
== END 2019-01-13 20:51 | disposition home or self-care (01) ==
LOC: ED 20:17
PROVIDERS: Emergency Provider Emergency Medicine; Family Provider Family Medicine
DX: T25.091A Burn of unspecified degree of multiple sites of right ankle and foot, initial encounter (principal); T25.022A Burn of unspecified degree of left foot, initial encounter; X10.2XXA Contact with fats and cooking oils, initial encounter; Y93.9 Activity, unspecified; Y92.9 Unspecified place or not applicable; Y99.9 Unspecified external cause status; Z23 Encounter for immunization
CPT/HCPCS: 90471; 90715; 99282